=== PATIENT | male | born 1990 | race Caucasian/White ===

== ENCOUNTER 2016-12-12 18:56 | Emergency (ER) | payer SELFPAY ==
[2016-12-12 19:11] VITALS: BP 120/81; BMI 24.2
--- NOTE | 2016-12-12 19:34 | DR.GENAD ---
HPI - PCP Primary Care Physician: nfd - HPI Comment HPI Comment: HISTORY BELOW. - Complaint/Symptoms Chief Complaint Doctors Comments: ABDOMINAL PAIN, NAUSEA TODAY. FEW DAYS INCREASING INTREMITTENT PAIN. NO FEVER. HAVE LOOSE STOOL TODAY TIMES 2. HISTORY CROHNS DISEASE. TREATED WHEN CONDITION FLARE UP. GUM RT LOWER WISDOM TOOTH AREA AND PAINFULL. Chief Complaint:: pt states" i got real nauseaed and then the cramps started they are severe I have Crohns Dx" - Nurses notes reviewed Nurses Notes Review: Yes - Source History Provided: Patient - Mode of Arrival Mode of Arrival: Ambulatory - Timing Onset of Chief Complaint: 12/12/16 Came on: Suddenly - Duration Duration: Constant Duration: Days - Severity Severity: Moderate PMH - PMH Past Medical History: Yes Past Medical History Comment: crohns dx Past Surgical History: Yes Surgical History: Appendectomy, Bowel Resection, Cholecystectomy - Family History History of Family Medical Conditions: Yes Family Medical History: [place], Coronary Artery Disease, Heart Failure - Social History Does any household member use tobacco: Yes Alcohol Use: None Do you use any recreational Drugs:: No Lives With: Family Lives Where: Home - infectious screening In the last 2 months have you had wt loss of >10#?: NO Have you had fever, night sweats or hemotysis?: No Have you traveled outside the country in the last 6 months?: No Isolation: Standard ROS - Review of Systems Constitutional: Weakness, Fatigue, Loss of Appetite. negative: Chills, Fever Eyes: No Symptoms Reported. negative: Eye Pain, Discharge ENTM: Mouth Pain, Mouth Swelling (GUM SWELLING) Respiratoy: No Symptoms Reported. negative: Productive Cough, Non-Productive Cough, Short of Breath, Wheezing, Hemoptysis Cardiovascular: No Symptoms Reported Gastrointestinal/Abdominal: Abdominal Pain, Nausea Genitourinary: No Symptoms Reported. negative: Dysuria, Frequency, Hematuria Neurological: Weakness Musculoskeletal: Muscle Pain Integumentary: No Symptoms Reported Hematologic/Lymphatic: No Symptoms Reported Endocrine: No Symptoms Reported All Other Systems: Reviewed and Negative PE - Vital Signs Vitals: Temperature 98.6 F Pulse Rate 87 Respiratory Rate 18 Blood Pressure [Right Arm] 123/65 Blood Pressure [Left Arm] 118/66 Blood Pressure 120/81 O2 Sat by Pulse Oximetry 97 - General General Appearance: Alert - Head Head Exam: Normal Inspection - Eyes Eye exam: Normal Appearance - ENT ENT Exam: Normal External Ear Exam External Ear Exam: Normal External Inspection TM/Canal Exam: Bilateral Normal Nose Exam: Normal Nose Exam Mouth Exam: Other (GUM RED AND SWOLLEN RT LOWER WISDOM TOOTH AREA.) Throat Exam: Normal Inspection - Neck Neck Exam: Normal Inspection - Chest Chest Inspection: Normal Inspection - Respiratory Respiratory Exam: Normal Lung Sounds Bilat Respiratory Exam: Bilateral Clear to Auscultation - Cardiovascular Cardiovascular Exam: Regular Rate, Normal Rhythm, Normal Heart Sounds - Abdominal Exam Abdominal Exam: Normal Bowel Sounds, Soft, Distention Abdominal Tenderness: Diffuse, Moderate - Extremities Extremities Exam: Normal Inspection - Back Back Exam: Normal Inspection - Neurologic Neurological Exam: Alert, Oriented X3 - Psychiatric Psychiatric Exam: Normal Affect, Normal Mood - Skin Skin Exam: Normal Color MDM - Additional Information Additional Information Obtained From: Family - Differential Diagnosis Differential Diagnosis: ABDOMINAL PAIN, BOWEL OBST, CROHNS DISEASE, GINGIVITIS Course - Treatment Treatment: SEE ORDERS. - Education/Counseling Education/Counseling: Patient, Family, Education Educated On: Diagnosis, Needs for Follow Up ROR - Labs Reviewed Laboratory Results Reviewed?: Yes Result Diagrams: 12/12/16 19:48 12/12/16 19:48 Laboratory: WBC 7.9 X10^3/uL (3.6-10.0) 12/12/16 19:48 RBC 5.22 X10^6/uL (4.7-6.0) 12/12/16 19:48 Hgb 15.3 g/dL (13.5-18.0) 12/12/16 19:48 Hct 44.1 % (42.0-54.0) 12/12/16 19:48 MCV 84.3 fL (80.0-100.0) 12/12/16 19:48 MCH 29.3 pg (27.0-34.0) 12/12/16 19:48 MCHC 34.7 g/dL (33.0-35.0) 12/12/16 19:48 RDW 13.8 % (11.6-16.5) 12/12/16 19:48 Plt Count 302 X10^3/uL (150.0-450.0) 12/12/16 19:48 MPV 9.9 fL (7.4-11.0) 12/12/16 19:48 Neut % 68.8 % (42.0-75.0) 12/12/16 19:48 Lymph % 17.3 % (21.0-51.0) L 12/12/16 19:48 [place] % 11.8 % (0.0-13.0) 12/12/16 19:48 Eos % 1.5 % (0.9-2.9) 12/12/16 19:48 Baso % 0.6 % (0.2-1.0) 12/12/16 19:48 Neut # 5.4 x10^3/uL (2.2-4.8) H 12/12/16 19:48 Lymph # 1.4 X10^3/uL (1.3-2.9) 12/12/16 19:48 [place] # 0.9 x10^3/uL (0.3-0.8) H 12/12/16 19:48 Eos # 0.1 x10^3/uL (0.0-0.2) 12/12/16 19:48 Baso # 0.1 X10^3/uL (0.0-0.1) 12/12/16 19:48 Absolute Nucleated RBC 0.0 /100WBC 12/12/16 19:48 Sodium 136 mmol/L (136-145) 12/12/16 19:48 Corrected Sodium TNP 12/12/16 19:48 Potassium 3.9 mmol/L (3.5-5.1) 12/12/16 19:48 Chloride 99 mmol/L (98-107) 12/12/16 19:48 Carbon Dioxide 28.8 mmol/L (21-32) 12/12/16 19:48 BUN 11 mg/dL (7-18) 12/12/16 19:48 Creatinine 1.17 mg/dL (0.70-1.30) 12/12/16 19:48 Est GFR (MDRD) Af Amer > 60 (>60) 12/12/16 19:48 Est GFR (MDRD) Non-Af > 60 (>60) 12/12/16 19:48 Glucose 99 mg/dL (65-99) 12/12/16 19:48 Calcium 9.8 mg/dL (8.5-10.1) 12/12/16 19:48 Corrected Calcium TNP 12/12/16 19:48 Total Bilirubin 0.50 mg/dL (0.2-1.0) 12/12/16 19:48 AST 16 Units/L (15-37) 12/12/16 19:48 ALT 23 Units/L (12-78) 12/12/16 19:48 Alkaline Phosphatase 96 Units/L (46-116) 12/12/16 19:48 Total Protein 8.5 g/dL (6.4-8.2) H 12/12/16 19:48 Albumin 4.2 g/dL (3.4-5.0) 12/12/16 19:48 Globulin 4.3 g/dL (2.5-4.5) 12/12/16 19:48 Albumin/Globulin Ratio 1.0 Ratio (1.1-2.1) L 12/12/16 19:48 Amylase 88 Units/L (25-115) 12/12/16 19:48 Lipase 97 Units/L (73-393) 12/12/16 19:48 Specimen Type Clean catch urine 12/12/16 19:51 Urine Color Yellow (YELLOW) 12/12/16 19:51 Urine Appearance Clear (CLEAR) 12/12/16 19:51 Urine pH 6.0 (5.0 - 8.0) 12/12/16 19:51 Ur Specific [place] 1.020 (1.000-1.030) 12/12/16 19:51 Urine Protein 1+ (NEGATIVE) 12/12/16 19:51 Urine Glucose (UA) Negative (NEGATIVE) 12/12/16 19:51 Urine Ketones Negative (NEGATIVE) 12/12/16 19:51 Urine Occult Blood Negative (NEGATIVE) 12/12/16 19:51 Urine Nitrite Negative (NEGATIVE) 12/12/16 19:51 Urine Bilirubin Negative (NEGATIVE) 12/12/16 19:51 Urine Urobilinogen 1+ (NORMAL) 12/12/16 19:51 Ur Leukocyte Esterase 1+ (NEGATIVE) 12/12/16 19:51 Urine RBC None seen /HPF (NEGATIVE) 12/12/16 19:51 Urine WBC 3-5 /HPF (NEGATIVE) 12/12/16 19:51 Ur Squamous Epith Cells Rare /HPF (NEGATIVE) 12/12/16 19:51 Urine Bacteria Trace /HPF (NEGATIVE) 12/12/16 19:51 Urine Mucus Moderate /HPF (NEGATIVE) 12/12/16 19:51 Ur Culture Indicated? No/not indicated 12/12/16 19:51 - XRAY XRAY Interpreted by: Radiologist XRAY Findings: REPORT DISCUSS WITH PATIENT. - Diagnosis Discharge Problem: Crohn disease Qualifiers: Gastrointestinal tract location: unspecified location Digestive disease complication type: unspecified complication Qualified Code(s): K50.919 - Crohn' s disease, unspecified, with unspecified complications Abdominal pain Qualifiers: Abdominal location: generalized Qualified Code(s): R10.84 - Generalized abdominal pain - Discharge Plan Disposition: HOME, SELF-CARE Condition: Stable Prescriptions: Acetaminophen with Codeine [Tylenol/Codeine #3 300-30 mg] 1 tab PO Q4-6H PRN # 15 tab PRN Reason: Pain Ciprofloxacin HCl [CIPRO 500 MG TAB *] 500 mg PO Q12H #20 tab Metronidazole [Flagyl Tab 500 mg] 500 mg PO TID #21 tab - Follow ups/Referrals Follow ups/Referrals: NFD,None [Primary Care Provider] - 3 days - Instructions Instructions: Abdominal Pain, Adult, [id number], Crohn Disease Additional Instructions: RETURN TO ED IF WORSE.
[2016-12-12] MEDS ORDERED: NS 1000 ML 1,000 ML IV ONE (19:49)
[2016-12-12] MEDS ORDERED: ZOFRAN INJ 4 MG VIAL IVP ONE (19:50)
[2016-12-12] MEDS ORDERED: NS 1000 ML 1,000 ML ONE (19:51)
[2016-12-12] MEDS ORDERED: ZOFRAN INJ 4 MG VIAL ONE (19:51)
[2016-12-12 19:58] LABS: BASOPHILS # (AUTO) 0.1 X10^3/uL (0.0-0.1); BASOPHILS % (AUTO) 0.6 % (0.2-1.0); EOSINOPHILS # (AUTO) 0.1 x10^3/uL (0.0-0.2); EOSINOPHILS % (AUTO) 1.5 % (0.9-2.9); HEMATOCRIT 44.1 % (42.0-54.0); HEMOGLOBIN 15.3 g/dL (13.5-18.0); LYMPHOCYTES # (AUTO) 1.4 X10^3/uL (1.3-2.9); LYMPHOCYTES % (AUTO) 17.3 % (21.0-51.0); MEAN CORPUSCULAR HEMOGLOBIN 29.3 pg (27.0-34.0); MEAN CORPUSCULAR HGB CONC 34.7 g/dL (33.0-35.0); MEAN CORPUSCULAR VOLUME 84.3 fL (80.0-100.0); MEAN PLATELET VOLUME 9.9 fL (7.4-11.0); MONOCYTES # (AUTO) 0.9 x10^3/uL (0.3-0.8); MONOCYTES % (AUTO) 11.8 % (0.0-13.0); NEUTROPHILS # (AUTO) 5.4 x10^3/uL (2.2-4.8); NEUTROPHILS % (AUTO) 68.8 % (42.0-75.0); PLATELET COUNT 302 X10^3/uL (150.0-450.0); RED BLOOD COUNT 5.22 X10^6/uL (4.7-6.0); RED CELL DISTRIBUTION WIDTH 13.8 % (11.6-16.5); WHITE BLOOD COUNT 7.9 X10^3/uL (3.6-10.0)
[2016-12-12 20:02] LABS: BILIRUBIN,URINE NEGATIVE (NEGATIVE); BLOOD/HEMOGLOBIN,URINE NEGATIVE (NEGATIVE); GLUCOSE, URINE NEGATIVE (NEGATIVE); KETONES,URINE NEGATIVE (NEGATIVE); LEUKOCYTE ESTERASE ,URINE 1+ (NEGATIVE); NITRITES,URINE NEGATIVE (NEGATIVE); PROTEIN,URINE 1+ (NEGATIVE); UROBILINOGEN,URINE 1+ (NORMAL)
[2016-12-12 20:07] LABS: ALANINE AMINOTRANSFERASE 23 Units/L (12-78); ALBUMIN 4.2 g/dL (3.4-5.0); ALKALINE PHOSPHATASE 96 Units/L (46-116); AMYLASE 88 Units/L (25-115); ASPARTATE AMINO TRANSFERASE 16 Units/L (15-37); BLOOD UREA NITROGEN 11 mg/dL (7-18); CALCIUM 9.8 mg/dL (8.5-10.1); CARBON DIOXIDE 28.8 mmol/L (21-32); CHLORIDE 99 mmol/L (98-107); CREATININE 1.17 mg/dL (0.70-1.30); LIPASE 97 Units/L (73-393); SODIUM 136 mmol/L (136-145); TOTAL PROTEIN 8.5 g/dL (6.4-8.2); eGFR BLACK RACES > 60 (>60); eGFR NON BLACK RACES > 60 (>60)
[2016-12-12 20:08] LABS: APPEARANCE,URINE CLEAR (CLEAR); BACTERIA,URINE TRACE /HPF (NEGATIVE); COLOR,URINE YELLOW (YELLOW); MUCUS,URINE MODERATE /HPF (NEGATIVE); RBC,URINE NONE SEEN /HPF (NEGATIVE); SQUAMOUS EPITHELIAL CELL,UR RARE /HPF (NEGATIVE)
--- NOTE | 2016-12-12 20:26 | CT ---
CT abdomen and pelvis without contrast Indication: Abdominal pain Technique: Helical CT images of the abdomen and pelvis were obtained without IV contrast. Reformatted images in the coronal and sagittal planes were also generated for review. Comparison: December 26, 2013 Findings: Visualized lung bases are clear. No aggressive osseous lesions are identified. The gallbladder is surgically absent. Within the limits of a noncontrast exam, the unenhanced liver, spleen, pancreas, adrenals and right kidney are grossly unremarkable. The left kidney is also normal apart from a nonobstructing 2 mm stone within its lower pole. No additional radiopaque urinary tract calculi are identified at any level and there is no left or right hydroureteronephrosis. Postsurgical changes are again noted within the mid and distal small bowel. The unenhanced GI tract i s otherwise grossly unremarkable without evidence of obstruction. The IVC, abdominal aorta, collapsed urinary bladder and prostate are normal. Multiple prominent mesenteric lymph nodes throughout the ab domen are again noted and unchanged. No free air, free fluid or worsening lymphadenopathy is identifi ed. Impression: 1. No acute abnormality identified to explain patient's abdominal pain. 2. Nonobstructing left nephrolithiasis. 3. Stable nonspecific mesenteric lymphadenopathy. Reported By:
[2016-12-12] MEDS ORDERED: SOLU-Medrol 125 MG VIAL IVP ONE (21:42)
[2016-12-12] MEDS ORDERED: CIPRO TAB 500 MG PO ONE (21:43)
[2016-12-12] MEDS ORDERED: FLAGYL IV PREMIX 500 MG BAG 500 MG/100 ML BAG IV ONE (21:43)
[2016-12-12] MEDS ORDERED: TYLENOL #3 TAB (W/CODEINE) PO ONE (21:55)
== END 2016-12-12 22:00 | disposition home or self-care (01) ==
LOC: ER 19:20
DX: K50.919 Crohn's disease, unspecified, with unspecified complications (principal); R10.84 Generalized abdominal pain; I88.0 Nonspecific mesenteric lymphadenitis; N20.0 Calculus of kidney
CPT/HCPCS: 36415; 74176; 80053; 81001; 82150; 83690; 85025; 96365; 96374; 99283; A4222; J2405

== ENCOUNTER 2017-01-08 20:43 | Emergency (ER) | payer SELFPAY ==
[2017-01-08 20:48] VITALS: BMI 24.3
[2017-01-08] MEDS ORDERED: ZOFRAN INJ 4 MG VIAL ONE (22:07)
[2017-01-08] MEDS ORDERED: PROTONIX INJ 40 MG VIAL ONE (22:07)
[2017-01-08] MEDS ORDERED: DEMEROL INJ ONE (22:08)
[2017-01-08] MEDS ORDERED: NS 1000 ML 1,000 ML IV ONE (22:08)
[2017-01-08] MEDS ORDERED: NS 1000 ML 1,000 ML ONE (22:08)
[2017-01-08] MEDS ORDERED: ZOFRAN INJ 4 MG VIAL IVP ONE (22:11)
[2017-01-08] MEDS ORDERED: DEMEROL INJ IVP ONE (22:11)
--- NOTE | 2017-01-08 22:11 | DR.GENAD ---
HPI - Complaint/Symptoms Chief Complaint Doctors Comments: Patient with a history of Crohns disease admits to vomitng for the past 13 hours. He admits to abdominal cramping. Denies diarrhea. Chief Complaint:: PT STATES THAT HIS "CHRONS IS ACTING UP" C/O N/V AND ABD PAIN. DOES NOT TAKE MEDS FOR CHRONS AND DOES NOT SEE DOCTOR FOR IT - Source History Provided: Patient - Mode of Arrival Mode of Arrival: Ambulatory - Timing Onset of Chief Complaint: 01/07/17 PMH - PMH Past Medical History: Yes Past Medical History: Hyperthyroidism Past Surgical History: Yes Surgical History: Abdominal Surgery, Bowel Resection - Family History History of Family Medical Conditions: Yes Family Medical History: Cancer, [place], Hypertension - Social History Do you use any recreational Drugs:: No - infectious screening Have you traveled outside the country in the last 6 months?: No ROS - Review of Systems Eyes: No Symptoms Reported ENTM: No Symptoms Reported Respiratoy: No Symptoms Reported Cardiovascular: No Symptoms Reported Gastrointestinal/Abdominal: Abdominal Pain Genitourinary: No Symptoms Reported Neurological: No Symptoms Reported Musculoskeletal: No Symptoms Reported Integumentary: No Symptoms Reported Hematologic/Lymphatic: No Symptoms Reported Endocrine: No Symptoms Reported Psychiatric: No Symptoms Reported, See HPI All Other Systems: Reviewed and Negative PE - Vital Signs Vitals: Temperature 98.7 F Pulse Rate 90 Respiratory Rate 18 Blood Pressure [Right Arm] 123/65 Blood Pressure [Left Arm] 118/66 Blood Pressure 129/88 O2 Sat by Pulse Oximetry 98 - General General Appearance: Alert, Anxious, In Distress - Head Head Exam: Normal Inspection, Atraumatic - Eyes Eye exam: Normal Appearance, PERRL, EOMI - ENT ENT Exam: Normal Exam, Normal Oropharynx External Ear Exam: Normal External Inspection TM/Canal Exam: Bilateral Normal Nose Exam: Normal Nose Exam Mouth Exam: Normal Inspection Throat Exam: Normal Inspection - Neck Neck Exam: Normal Inspection - Chest Chest Inspection: Normal Inspection - Respiratory Respiratory Exam: Normal Lung Sounds Bilat Respiratory Exam: Bilateral Clear to Auscultation - Cardiovascular Cardiovascular Exam: Regular Rate, Normal Rhythm - Abdominal Exam Abdominal Exam: Normal Inspection, Normal Bowel Sounds Abdominal Tenderness: Diffuse - Extremities Extremities Exam: Normal Inspection, Full ROM - Back Back Exam: Normal Inspection, Full ROM - Neurologic Neurological Exam: Alert, Oriented X3, CN II-XII Intact - Psychiatric Psychiatric Exam: Normal Affect - Skin Skin Exam: Warm, Dry, Intact Course - Reevaluation 1st: Improved - Education/Counseling Educated On: Treatment, Prognosis, Needs for Follow Up ROR - Labs Reviewed Result Diagrams: 01/08/17 22:15 01/08/17 22:15 Laboratory: WBC 10.4 X10^3/uL (3.6-10.0) H 01/08/17 22:15 RBC 5.21 X10^6/uL (4.7-6.0) 01/08/17 22:15 Hgb 15.0 g/dL (13.5-18.0) 01/08/17 22:15 Hct 43.9 % (42.0-54.0) 01/08/17 22:15 MCV 84.3 fL (80.0-100.0) 01/08/17 22:15 MCH 28.7 pg (27.0-34.0) 01/08/17 22:15 MCHC 34.1 g/dL (33.0-35.0) 01/08/17 22:15 RDW 14.2 % (11.6-16.5) 01/08/17 22:15 Plt Count 370 X10^3/uL (150.0-450.0) 01/08/17 22:15 MPV 9.1 fL (7.4-11.0) 01/08/17 22:15 Neut % 74.3 % (42.0-75.0) 01/08/17 22:15 Lymph % 12.9 % (21.0-51.0) L 01/08/17 22:15 [place] % 11.9 % (0.0-13.0) 01/08/17 22:15 Eos % 0.5 % (0.9-2.9) L 01/08/17 22:15 Baso % 0.4 % (0.2-1.0) 01/08/17 22:15 Neut # 7.7 x10^3/uL (2.2-4.8) H 01/08/17 22:15 Lymph # 1.3 X10^3/uL (1.3-2.9) 01/08/17 22:15 [place] # 1.2 x10^3/uL (0.3-0.8) H 01/08/17 22:15 Eos # 0.1 x10^3/uL (0.0-0.2) 01/08/17 22:15 Baso # 0.0 X10^3/uL (0.0-0.1) 01/08/17 22:15 Absolute Nucleated RBC 0.0 /100WBC 01/08/17 22:15 Sodium 138 mmol/L (136-145) 01/08/17 22:15 Corrected Sodium TNP 01/08/17 22:15 Potassium 3.8 mmol/L (3.5-5.1) 01/08/17 22:15 Chloride 99 mmol/L (98-107) 01/08/17 22:15 Carbon Dioxide 28.7 mmol/L (21-32) 01/08/17 22:15 BUN 15 mg/dL (7-18) 01/08/17 22:15 Creatinine 1.22 mg/dL (0.70-1.30) 01/08/17 22:15 Est GFR (MDRD) Af Amer > 60 (>60) 01/08/17 22:15 Est GFR (MDRD) Non-Af > 60 (>60) 01/08/17 22:15 Glucose 105 mg/dL (65-99) H 01/08/17 22:15 Calcium 9.5 mg/dL (8.5-10.1) 01/08/17 22:15 Corrected Calcium TNP 01/08/17 22:15 Total Bilirubin 0.50 mg/dL (0.2-1.0) 01/08/17 22:15 AST 16 Units/L (15-37) 01/08/17 22:15 ALT 20 Units/L (12-78) 01/08/17 22:15 Alkaline Phosphatase 91 Units/L (46-116) 01/08/17 22:15 C-Reactive Protein 23.10 mg/L (0-3.0) H 01/08/17 22:15 Total Protein 8.5 g/dL (6.4-8.2) H 01/08/17 22:15 Albumin 3.7 g/dL (3.4-5.0) 01/08/17 22:15 Globulin 4.8 g/dL (2.5-4.5) H 01/08/17 22:15 Albumin/Globulin Ratio 0.8 Ratio (1.1-2.1) L 01/08/17 22:15 - Diagnosis Discharge Problem: Crohns disease Qualifiers: Gastrointestinal tract location: small and large intestine Digestive disease complication type: without complication Qualified Code(s): K50.80 - Crohn's disease of both small and large intestine without complications - Discharge Plan Condition: Stable - Follow ups/Referrals Follow ups/Referrals: DARLYN MEDEIROS [Primary Care Provider] - 3 days - Instructions
[2017-01-08] MEDS ORDERED: PROTONIX INJ 40 MG VIAL IVP ONE (22:12)
[2017-01-08 22:22] LABS: BASOPHILS % (AUTO) 0.4 % (0.2-1.0); EOSINOPHILS # (AUTO) 0.1 x10^3/uL (0.0-0.2); EOSINOPHILS % (AUTO) 0.5 % (0.9-2.9); HEMATOCRIT 43.9 % (42.0-54.0); LYMPHOCYTES # (AUTO) 1.3 X10^3/uL (1.3-2.9); LYMPHOCYTES % (AUTO) 12.9 % (21.0-51.0); MEAN CORPUSCULAR HEMOGLOBIN 28.7 pg (27.0-34.0); MEAN CORPUSCULAR HGB CONC 34.1 g/dL (33.0-35.0); MEAN CORPUSCULAR VOLUME 84.3 fL (80.0-100.0); MEAN PLATELET VOLUME 9.1 fL (7.4-11.0); MONOCYTES # (AUTO) 1.2 x10^3/uL (0.3-0.8); MONOCYTES % (AUTO) 11.9 % (0.0-13.0); NEUTROPHILS # (AUTO) 7.7 x10^3/uL (2.2-4.8); NEUTROPHILS % (AUTO) 74.3 % (42.0-75.0); PLATELET COUNT 370 X10^3/uL (150.0-450.0); RED BLOOD COUNT 5.21 X10^6/uL (4.7-6.0); RED CELL DISTRIBUTION WIDTH 14.2 % (11.6-16.5); WHITE BLOOD COUNT 10.4 X10^3/uL (3.6-10.0)
[2017-01-08 22:35] LABS: ALANINE AMINOTRANSFERASE 20 Units/L (12-78); ALBUMIN 3.7 g/dL (3.4-5.0); ALKALINE PHOSPHATASE 91 Units/L (46-116); ASPARTATE AMINO TRANSFERASE 16 Units/L (15-37); BLOOD UREA NITROGEN 15 mg/dL (7-18); CALCIUM 9.5 mg/dL (8.5-10.1); CARBON DIOXIDE 28.7 mmol/L (21-32); CHLORIDE 99 mmol/L (98-107); CREATININE 1.22 mg/dL (0.70-1.30); SODIUM 138 mmol/L (136-145); TOTAL PROTEIN 8.5 g/dL (6.4-8.2); eGFR BLACK RACES > 60 (>60); eGFR NON BLACK RACES > 60 (>60)
[2017-01-08] MEDS ORDERED: SOLU-Medrol 125 MG VIAL ONE (22:53)
[2017-01-08] MEDS ORDERED: SOLU-Medrol 125 MG VIAL IVP ONE (22:53)
[2017-01-09] MEDS ORDERED: DEMEROL INJ IVP ONE (00:45)
[2017-01-09] MEDS ORDERED: DEMEROL INJ ONE (00:47)
[2017-01-09] MEDS ORDERED: NS 500 ML IV 500 ML IV ONE ×2 (00:49→00:53)
[2017-01-09 01:23] VITALS: BP 118/78
== END 2017-01-09 01:24 | disposition home or self-care (01) ==
LOC: ER 20:56
DX: K50.80 Crohn's disease of both small and large intestine without complications (principal)
CPT/HCPCS: 36415; 80053; 85025; 86140; 96365; 96367; 96374; 96375; A4222; C9113; J2175; J2405; J2930

== ENCOUNTER 2024-09-06 20:48 | Inpatient (IN) ==
--- NOTE | 2024-09-06 21:25 | DR.ABDMALE ---
HPI Time seen Time Seen by Provider: 09/06/24 21:25 PCP Primary Care Physician: none Complaint Chief Complaint:: vomiting, body pains, stomach cramps, Bad Crohn's flare up Self Treatment fo Chief Complaint: none COVID-19 Coronavirus risk:travel/contact w/high risk person: No Has patient experienced Coronavirus symptoms: No Mode of arrival Mode of Arrival: Ambulatory Timing Onset of Chief Complaint: 09/05/24 PMH PMH Past Medical History: No Past Medical History: Hyperthyroidism Past Surgical History: Yes Surgical History: Bowel Resection Past Surgical History Comment: 2 previous bowel resections umbilical fistula Family History History of Family Medical Conditions: No Family Medical History: Cancer, [place] and Hypertension Social History Does patient currently use any type of tobacco product: No Have you used tobacco products in the last 12 months: No Type of Tobacco Use: None Does any household member use tobacco: No Alcohol Use: None Do you use any recreational Drugs:: No Lives With: Mom Lives Where: Home Travel Risk Coronavirus risk:travel/contact w/high risk person: No Has patient experienced Coronavirus symptoms: No Infectious screening Have you traveled outside the country in the last 6 months?: No Isolation: Standard PE Vital Signs Vital Signs: Temp Pulse Pulse Resp BP BP Pulse Ox 09/06/24 22:15 80 98 09/06/24 22:00 98.0 F 121/71 09/06/24 22:00 70 97 09/06/24 22:00 121/71 09/06/24 22:00 121/71 09/06/24 22:00 70 97 09/06/24 21:49 77 97 09/06/24 21:04 98.1 F 87 18 138/73 97 09/06/24 21:00 98.0 F 77 18 127/64 100 09/06/24 21:00 98.1 F 87 18 138/73 97 O2 Del Method 09/06/24 22:15 09/06/24 22:00 09/06/24 22:00 09/06/24 22:00 09/06/24 22:00 09/06/24 22:00 09/06/24 21:49 09/06/24 21:04 Room Air 09/06/24 21:00 Room Air 09/06/24 21:00 Room Air ROR Labs Reviewed 09/06/24 22:00 09/06/24 22:00 Laboratory: 09/06/24 22:06 Navel Wound Gram Stain - Final WBC 8.7 X10^3/uL (3.6-10.0) 09/06/24 22:00 RBC 4.75 X10^6/uL (4.7-6.0) 09/06/24 22:00 Hgb 13.3 g/dL (13.5-18.0) L 09/06/24 22:00 Hct 39.1 % (42.0-54.0) L 09/06/24 22:00 MCV 82.4 fL (80.0-100.0) 09/06/24 22:00 MCH 27.9 pg (27.0-34.0) 09/06/24 22:00 MCHC 33.9 g/dL (33.0-35.0) 09/06/24 22:00 RDW 16.0 % (11.6-16.5) 09/06/24 22:00 Plt Count 298 X10^3/uL (150.0-450.0) 09/06/24 22:00 MPV 8.8 fL (7.4-11.0) 09/06/24 22:00 Neut % (Auto) 76.5 % (42.0-75.0) H 09/06/24 22:00 Lymph % (Auto) 9.7 % (21.0-51.0) L 09/06/24 22:00 [place] % (Auto) 11.2 % (0.0-13.0) 09/06/24 22:00 Eos % (Auto) 2.2 % (0.9-2.9) 09/06/24 22:00 Baso % (Auto) 0.4 % (0.2-1.0) 09/06/24 22:00 Neut # (Auto) 6.7 x10^3/uL (2.2-4.8) H 09/06/24 22:00 Lymph # (Auto) 0.8 X10^3/uL (1.3-2.9) L 09/06/24 22:00 [place] # (Auto) 1.0 x10^3/uL (0.3-0.8) H 09/06/24 22:00 Eos # (Auto) 0.2 x10^3/uL (0.0-0.2) 09/06/24 22:00 Baso # (Auto) 0.0 X10^3/uL (0.0-0.1) 09/06/24 22:00 Absolute Nucleated RBC 0.1 /100WBC 09/06/24 22:00 Sodium 144 mmol/L (136-145) 09/06/24 22:00 Corrected Sodium 145 mmol/L (136-145) 09/06/24 22:00 Potassium 3.4 mmol/L (3.5-5.1) L 09/06/24 22:00 Chloride 103 mmol/L (98-107) 09/06/24 22:00 Carbon Dioxide 29.1 mmol/L (21-32) 09/06/24 22:00 BUN 12 mg/dL (7-18) 09/06/24 22:00 Creatinine 0.97 mg/dL (0.70-1.30) 09/06/24 22:00 Est GFR (MDRD) Af Amer > 60 (>60) 09/06/24 22:00 Est GFR (MDRD) Non-Af > 60 (>60) 09/06/24 22:00 Glucose 122 mg/dL (65-99) H 09/06/24 22:00 Calcium 9.0 mg/dL (8.5-10.1) 09/06/24 22:00 Corrected Calcium 9.6 mg/dL (8.5-10.1) 09/06/24 22:00 Total Bilirubin 0.30 mg/dL (0.2-1.0) 09/06/24 22:00 AST 15 Units/L (15-37) 09/06/24 22:00 ALT 33 Units/L (12-78) 09/06/24 22:00 Alkaline Phosphatase 109 Units/L (46-116) 09/06/24 22:00 Total Protein 7.8 g/dL (6.4-8.2) 09/06/24 22:00 Albumin 3.3 g/dL (3.4-5.0) L 09/06/24 22:00 Globulin 4.5 g/dL (2.5-4.5) 09/06/24 22:00 Albumin/Globulin Ratio 0.7 Ratio (1.1-2.1) L 09/06/24 22:00 Amylase 107 Units/L (25-115) 09/06/24 22:00 Lipase 49 Units/L (16-77) 09/06/24 22:00 Specimen Type Clean catch urine 09/06/24 23:00 Urine Color Yellow (YELLOW) 09/06/24 23:00 Urine Appearance Clear (CLEAR) 09/06/24 23:00 Urine pH 7.0 (5.0 - 8.0) 09/06/24 23:00 Ur Specific [place] 1.015 (1.000-1.030) 09/06/24 23:00 Urine Protein Negative (NEGATIVE) 09/06/24 23:00 Urine Glucose (UA) Negative (NEGATIVE) 09/06/24 23:00 Urine Ketones Negative (NEGATIVE) 09/06/24 23:00 Urine Blood Negative (NEGATIVE) 09/06/24 23:00 Urine Nitrite Negative (NEGATIVE) 09/06/24 23:00 Urine Bilirubin Negative (NEGATIVE) 09/06/24 23:00 Urine Urobilinogen 1+ (NORMAL) 09/06/24 23:00 Ur Leukocyte Esterase Negative (NEGATIVE) 09/06/24 23:00 Urine RBC 0-2 /HPF (0-3) 09/06/24 23:00 Urine WBC None seen /HPF (0-5) 09/06/24 23:00 Ur Squamous Epith Cells Few /HPF (NEGATIVE) 09/06/24 23:00 Amorphous Sediment 1+ /HPF (NEGATIVE) 09/06/24 23:00 Urine Bacteria Trace /HPF (NEGATIVE) 09/06/24 23:00 Ur Culture Indicated? No/not indicated 09/06/24 23:00 Opioid Opioid Risk Tool Age (Steven box if 16-45): No History of Preadolescent Sexual Abuse: No Total: 0 Total Score Risk Category: Low Risk Copyright: Ramon CUTLER predicting aberrant behaviors Discharge Plan Discharge Plan Patient Disposition: HOME, SELF-CARE Condition: Stable Prescriptions: No Action gabapentin 100 mg capsule 100 mg PO BID fluoxetine [Prozac] 20 mg capsule 20 mg PO QAM tamsulosin [Flomax] 0.4 mg capsule 0.4 mg PO QDAY Qty: 20 0RF hydrocodone-acetaminophen 5-325 mg tablet 1 tab PO Q8H MDD 3 PRNQty: 20 0RF ondansetron HCl 4 mg tablet 4 mg PO Q8H PRNQty: 10 0RF Health Concerns: Post Hospitalization: new medications and changes needed to prevent readmission or further decline. Pt educated and given instructions on all concerns. Plan of Treatment: Continue with present treatment and follow up plan. Pt is to keep follow up appointment as instructed and take medications as ordered. Orders to Discharge Patient Discharge Orders: Transfer (Routine); Ordered 09/07/24 Ordered By: JOAN SALAS Follow ups/Referrals Follow ups/Referrals: NFD,None [Primary Care Provider] - 3 days Instructions Stand Alone Forms: Find Help Web Site, Post Hospital Follow Up Care Print Language: BURKIN[place]
[2024-09-06] MEDS: NS 1,000 ML IV 1,000 ML IV ONE (21:55)
[2024-09-06] MEDS ORDERED: NS 1,000 ML IV 1,000 ML ONE (21:55)
[2024-09-06] MEDS ORDERED: ZOFRAN INJ 4 MG VIAL ONE (22:07)
[2024-09-06] MEDS: ZOFRAN INJ 4 MG VIAL IVP ONE (22:08)
[2024-09-06 22:13] LABS: BASOPHILS % (AUTO) 0.4 % (0.2-1.0); EOSINOPHILS # (AUTO) 0.2 x10^3/uL (0.0-0.2); EOSINOPHILS % (AUTO) 2.2 % (0.9-2.9); HEMATOCRIT 39.1 % (42.0-54.0); HEMOGLOBIN 13.3 g/dL (13.5-18.0); LYMPHOCYTES # (AUTO) 0.8 X10^3/uL (1.3-2.9); LYMPHOCYTES % (AUTO) 9.7 % (21.0-51.0); MEAN CORPUSCULAR HEMOGLOBIN 27.9 pg (27.0-34.0); MEAN CORPUSCULAR HGB CONC 33.9 g/dL (33.0-35.0); MEAN CORPUSCULAR VOLUME 82.4 fL (80.0-100.0); MEAN PLATELET VOLUME 8.8 fL (7.4-11.0); MONOCYTES % (AUTO) 11.2 % (0.0-13.0); NEUTROPHILS # (AUTO) 6.7 x10^3/uL (2.2-4.8); NEUTROPHILS % (AUTO) 76.5 % (42.0-75.0); PLATELET COUNT 298 X10^3/uL (150.0-450.0); RED BLOOD COUNT 4.75 X10^6/uL (4.7-6.0); WHITE BLOOD COUNT 8.7 X10^3/uL (3.6-10.0)
[2024-09-06 22:21] LABS: ALANINE AMINOTRANSFERASE 33 Units/L (12-78); ALBUMIN 3.3 g/dL (3.4-5.0); ALKALINE PHOSPHATASE 109 Units/L (46-116); AMYLASE 107 Units/L (25-115); ASPARTATE AMINO TRANSFERASE 15 Units/L (15-37); BLOOD UREA NITROGEN 12 mg/dL (7-18); CARBON DIOXIDE 29.1 mmol/L (21-32); CHLORIDE 103 mmol/L (98-107); COR CA(FOR HYPOALB) 9.6 mg/dL (8.5-10.1); COR NA(FOR HYPERGLY) 145 mmol/L (136-145); CREATININE 0.97 mg/dL (0.70-1.30); GLUCOSE 122 mg/dL (65-99); LIPASE 49 Units/L (16-77); POTASSIUM 3.4 mmol/L (3.5-5.1); SODIUM 144 mmol/L (136-145); TOTAL PROTEIN 7.8 g/dL (6.4-8.2); eGFR NON BLACK RACES > 60 (>60)
--- NOTE | 2024-09-06 23:13 | CT ---
CT ABDOMEN AND PELVIS WITHOUT CONTRAST HISTORY: Severe abdominal pain with distention. There is concern for bowel obstruction COMPARISON: None TECHNIQUE: Axial images were obtained of the abdomen and pelvis without IV contrast. Sagittal and coronal reformatted images were provided. All images were reviewed in a variety of windows and levels. RADIATION REDUCTION TECHNIQUE: Automated exposure control, adjustment of the mA or kV according to patient size, or iterative reconstruction techniques were used. FINDINGS: Please note that lack of IV contrast does limit evaluation of the soft tissues and vascular detail. The visualized lower lung zones are clear. The heart size is within normal limits. There is no evidence of a pericardial effusion. The liver, spleen, pancreas, adrenal glands, and kidneys are grossly unremarkable. The patient is status post cholecystectomy. There is no evidence of stones or signs of obstructive uropathy. The stomach is distended and filled with food like materials. Markedly distended loops of small bowel are seen with multiple surgical suture areas that may be from partial resection. There is thickening of the small-bowel wall in certain areas which could represent an infectious or inflammatory process. These imaging features are concerning for a moderate to high-grade partial small bowel obstruction. Severe constipation is seen with heavy fecal burden from the cecum to the rectosigmoid region. Please note that the mesentery shows a swirling pattern located in the right hemiabdomen at the level of the lower lumbar spine which could be causing a mechanical obstruction of this process. A definitive transition point can not be identified on this examination but appears to be within the distal small bowel. There is no evidence of retroperitoneal or mesenteric lymphadenopathy. The visualized bones demonstrate degenerative changes. There are no concerning lytic or blastic lesions identified. IMPRESSION: 1. MARKEDLY DISTENDED LOOPS OF SMALL BOWEL ARE SEEN WITH MULTIPLE SURGICAL SUTURE AREAS THAT MAY BE FROM PARTIAL RESECTION. THERE IS THICKENING OF THE SMALL-BOWEL WALL IN CERTAIN AREAS WHICH COULD REPRESENT AN INFECTIOUS OR INFLAMMATORY PROCESS. THESE IMAGING FEATURES ARE CONCERNING FOR A MODERATE TO HIGH-GRADE PARTIAL SMALL BOWEL OBSTRUCTION. 2. SEVERE CONSTIPATION IS SEEN WITH HEAVY FECAL BURDEN FROM THE CECUM TO THE RECTOSIGMOID REGION. 3. PLEASE NOTE THAT THE MESENTERY SHOWS A SWIRLING PATTERN LOCATED IN THE RIGHT HEMIABDOMEN AT THE LEVEL OF THE LOWER LUMBAR SPINE WHICH COULD BE CAUSING A MECHANICAL OBSTRUCTION OF THIS PROCESS. A DEFINITIVE TRANSITION POINT CAN NOT BE IDENTIFIED ON THIS EXAMINATION BUT APPEARS TO BE WITHIN THE DISTAL SMALL BOWEL. THIS IS AN ELECTRONICALLY VERIFIED FINAL REPORT 09/06/2024 11:10 PM - Electronically signed by Mendel Knight MD
[2024-09-06 23:27] LABS: BILIRUBIN,URINE NEGATIVE (NEGATIVE); BLOOD/HEMOGLOBIN,URINE NEGATIVE (NEGATIVE); GLUCOSE, URINE NEGATIVE (NEGATIVE); KETONES,URINE NEGATIVE (NEGATIVE); LEUKOCYTE ESTERASE ,URINE NEGATIVE (NEGATIVE); NITRITES,URINE NEGATIVE (NEGATIVE); PROTEIN,URINE NEGATIVE (NEGATIVE); UROBILINOGEN,URINE 1+ (NORMAL)
[2024-09-06 23:30] LABS: APPEARANCE,URINE CLEAR (CLEAR); BACTERIA,URINE TRACE /HPF (NEGATIVE); COLOR,URINE YELLOW (YELLOW); RBC,URINE 0-2 /HPF (0-3); SQUAMOUS EPITHELIAL CELL,UR FEW /HPF (NEGATIVE)
[2024-09-07] MEDS: MORPHINE SULFATE INJ 4 MG IVP ONE (00:06)
[2024-09-07 03:24] VITALS: BMI 22.4
[2024-09-07] MEDS: CIPRO IV 400 MG PREMIX* 400 MG/200 ML IV.SOLN. IV SCH (03:33)
[2024-09-07 05:28] VITALS: RESP 20
[2024-09-07 05:58] LABS: BASOPHILS % (AUTO) 0.3 % (0.2-1.0); EOSINOPHILS # (AUTO) 0.2 x10^3/uL (0.0-0.2); EOSINOPHILS % (AUTO) 2.3 % (0.9-2.9); HEMATOCRIT 38.5 % (42.0-54.0); HEMOGLOBIN 13.1 g/dL (13.5-18.0); LYMPHOCYTES # (AUTO) 1.3 X10^3/uL (1.3-2.9); LYMPHOCYTES % (AUTO) 12.5 % (21.0-51.0); MEAN CORPUSCULAR HEMOGLOBIN 28.2 pg (27.0-34.0); MEAN CORPUSCULAR HGB CONC 34.1 g/dL (33.0-35.0); MEAN CORPUSCULAR VOLUME 82.8 fL (80.0-100.0); MEAN PLATELET VOLUME 9.3 fL (7.4-11.0); MONOCYTES # (AUTO) 1.4 x10^3/uL (0.3-0.8); MONOCYTES % (AUTO) 14.1 % (0.0-13.0); NEUTROPHILS # (AUTO) 7.2 x10^3/uL (2.2-4.8); NEUTROPHILS % (AUTO) 70.8 % (42.0-75.0); PLATELET COUNT 292 X10^3/uL (150.0-450.0); RED BLOOD COUNT 4.66 X10^6/uL (4.7-6.0); RED CELL DISTRIBUTION WIDTH 15.5 % (11.6-16.5); WHITE BLOOD COUNT 10.1 X10^3/uL (3.6-10.0)
[2024-09-07 06:05] LABS: ALANINE AMINOTRANSFERASE 27 Units/L (12-78); ALKALINE PHOSPHATASE 99 Units/L (46-116); ASPARTATE AMINO TRANSFERASE 17 Units/L (15-37); BLOOD UREA NITROGEN 10 mg/dL (7-18); CALCIUM 8.7 mg/dL (8.5-10.1); CARBON DIOXIDE 25.6 mmol/L (21-32); CHLORIDE 105 mmol/L (98-107); COR CA(FOR HYPOALB) 9.5 mg/dL (8.5-10.1); CREATININE 0.85 mg/dL (0.70-1.30); GLUCOSE 110 mg/dL (65-99); POTASSIUM 3.7 mmol/L (3.5-5.1); SODIUM 141 mmol/L (136-145); TOTAL PROTEIN 7.2 g/dL (6.4-8.2); eGFR NON BLACK RACES > 60 (>60)
[2024-09-07] MEDS ORDERED: CONSULT PHARMACY - POTASSIUM & MAGNESIUM XX SCH (07:00)
[2024-09-07] MEDS: MORPHINE SULFATE INJ 2 MG INJ IVP PRN (07:14)
[2024-09-07] MEDS: ZOFRAN INJ 4 MG VIAL IVP PRN (07:15)
[2024-09-07] MEDS: NS 500 ML IV 500 ML IV ONE (08:10)
[2024-09-07] MEDS: MAGNESIUM SULFATE 1 GRAM/100 mL PREMIX 1 G/100 ML BAG IV SCH (08:11)
[2024-09-07 08:51] VITALS: BP 114/75; PULSE 56; TEMP 97.5; O2SAT 96
[2024-09-07] MEDS ORDERED: K-RIDER 10 MEQ/100 ML WATER 10 MEQ/100 ML BAG IV SCH (09:00)
--- NOTE | 2024-09-07 10:33 | DR.H&P ---
H&P History & Physical for Day of: H&P Date: 09/07/24 Chief Complaint Chief Complaint: Abdominal pain, abdominal distention. 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 He has drainage from the periumbilical area and CT scan consistent with thickened small bowel loops and probable small bowel obstruction. Patient past history of Crohn's disease status post resection of bowel in the past, 2004. 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 Patient has not been on medications for his Crohn disease as he has no insurance. 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 Past Medical History Past Medical History: Hyperthyroidism Additional Medical History: History of Crohn's as above Past Surgical History Surgical History: Appendectomy, Bowel Resection and Cholecystectomy Family History Family Medical History: [place], Coronary Artery Disease and Heart Failure Social History Does patient currently use any type of tobacco product: No Have you used tobacco products in the last 12 months: No Type of Tobacco Use: None Does any household member use tobacco: No Alcohol Use: None Drug Use: Marijuana Medications Home Medications: Home Medications Medication Instructions Recorded Confirmed Type fluoxetine 20 mg capsule (Prozac) 20 mg PO QAM 3 10/25/22 History gabapentin 100 mg capsule 100 mg PO BID 10/25/2210/25 History Allergies Allergies Allergy/AdvReac Type Severity Reaction Status Date / Time hydromorphone (From Dilaudid) Allergy Verified 10/25/22 01:27 Penicillins Allergy Verified 10/25/22 01:27 Labs 09/07/24 05:11 09/07/24 05:11 Labs: 09/06/24 22:06 Navel Wound Gram Stain - Final 09/06/24 22:06 Navel Wound Culture - Preliminary Laboratory WBC 10.1 X10^3/uL (3.6-10.0) H 09/07/24 05:11 RBC 4.66 X10^6/uL (4.7-6.0) L 09/07/24 05:11 Hgb 13.1 g/dL (13.5-18.0) L 09/07/24 05:11 Hct 38.5 % (42.0-54.0) L 09/07/24 05:11 MCV 82.8 fL (80.0-100.0) 09/07/24 05:11 MCH 28.2 pg (27.0-34.0) 09/07/24 05:11 MCHC 34.1 g/dL (33.0-35.0) 09/07/24 05:11 RDW 15.5 % (11.6-16.5) 09/07/24 05:11 Plt Count 292 X10^3/uL (150.0-450.0) 09/07/24 05:11 MPV 9.3 fL (7.4-11.0) 09/07/24 05:11 Neut % (Auto) 70.8 % (42.0-75.0) 09/07/24 05:11 Lymph % (Auto) 12.5 % (21.0-51.0) L 09/07/24 05:11 [place] % (Auto) 14.1 % (0.0-13.0) H 09/07/24 05:11 Eos % (Auto) 2.3 % (0.9-2.9) 09/07/24 05:11 Baso % (Auto) 0.3 % (0.2-1.0) 09/07/24 05:11 Neut # (Auto) 7.2 x10^3/uL (2.2-4.8) H 09/07/24 05:11 Lymph # (Auto) 1.3 X10^3/uL (1.3-2.9) 09/07/24 05:11 [place] # (Auto) 1.4 x10^3/uL (0.3-0.8) H 09/07/24 05:11 Eos # (Auto) 0.2 x10^3/uL (0.0-0.2) 09/07/24 05:11 Baso # (Auto) 0.0 X10^3/uL (0.0-0.1) 09/07/24 05:11 Absolute Nucleated RBC 0.0 /100WBC 09/07/24 05:11 Sodium 141 mmol/L (136-145) 09/07/24 05:11 Corrected Sodium TNP 09/07/24 05:11 Potassium 3.7 mmol/L (3.5-5.1) 09/07/24 05:11 Chloride 105 mmol/L (98-107) 09/07/24 05:11 Carbon Dioxide 25.6 mmol/L (21-32) 09/07/24 05:11 BUN 10 mg/dL (7-18) 09/07/24 05:11 Creatinine 0.85 mg/dL (0.70-1.30) 09/07/24 05:11 Est GFR (MDRD) Af Amer > 60 (>60) 09/07/24 05:11 Est GFR (MDRD) Non-Af > 60 (>60) 09/07/24 05:11 Glucose 110 mg/dL (65-99) H 09/07/24 05:11 Calcium 8.7 mg/dL (8.5-10.1) 09/07/24 05:11 Corrected Calcium 9.5 mg/dL (8.5-10.1) 09/07/24 05:11 Magnesium 1.8 mg/dL (2.0-2.9) L 09/07/24 05:11 Total Bilirubin 0.40 mg/dL (0.2-1.0) 09/07/24 05:11 AST 17 Units/L (15-37) 09/07/24 05:11 ALT 27 Units/L (12-78) 09/07/24 05:11 Alkaline Phosphatase 99 Units/L (46-116) 09/07/24 05:11 Total Protein 7.2 g/dL (6.4-8.2) 09/07/24 05:11 Albumin 3.0 g/dL (3.4-5.0) L 09/07/24 05:11 Globulin 4.2 g/dL (2.5-4.5) 09/07/24 05:11 Albumin/Globulin Ratio 0.7 Ratio (1.1-2.1) L 09/07/24 05:11 Amylase 107 Units/L (25-115) 09/06/24 22:00 Lipase 49 Units/L (16-77) 09/06/24 22:00 Specimen Type Clean catch urine 09/06/24 23:00 Urine Color Yellow (YELLOW) 09/06/24 23:00 Urine Appearance Clear (CLEAR) 09/06/24 23:00 Urine pH 7.0 (5.0 - 8.0) 09/06/24 23:00 Ur Specific [place] 1.015 (1.000-1.030) 09/06/24 23:00 Urine Protein Negative (NEGATIVE) 09/06/24 23:00 Urine Glucose (UA) Negative (NEGATIVE) 09/06/24 23:00 Urine Ketones Negative (NEGATIVE) 09/06/24 23:00 Urine Blood Negative (NEGATIVE) 09/06/24 23:00 Urine Nitrite Negative (NEGATIVE) 09/06/24 23:00 Urine Bilirubin Negative (NEGATIVE) 09/06/24 23:00 Urine Urobilinogen 1+ (NORMAL) 09/06/24 23:00 Ur Leukocyte Esterase Negative (NEGATIVE) 09/06/24 23:00 Urine RBC 0-2 /HPF (0-3) 09/06/24 23:00 Urine WBC None seen /HPF (0-5) 09/06/24 23:00 Ur Squamous Epith Cells Few /HPF (NEGATIVE) 09/06/24 23:00 Amorphous Sediment 1+ /HPF (NEGATIVE) 09/06/24 23:00 Urine Bacteria Trace /HPF (NEGATIVE) 09/06/24 23:00 Ur Culture Indicated? No/not indicated 09/06/24 23:00 Review of Systems Constitutional: See HPI Eyes: No Symptoms Reported ENT: No Symptoms Reported Respiratory: No Symptoms Reported Cardiovascular: No Symptoms Reported Gastrointestinal: See HPI Genitourinary: No Symptoms Reported Musculoskeletal: No Symptoms Reported Skin: See HPI Neurological: No Symptoms Reported Physical Exam Vital Signs: Vital Signs Temperature 97.5 F Temperature 98.1 F Pulse Rate [Left Brachial] 56 Pulse Rate [Left Brachial] 60 Respiratory Rate 20 Respiratory Rate 20 Respiratory Rate 20 Respiratory Rate 20 Blood Pressure [Left Arm] 114/75 Blood Pressure [Left Arm] 121/72 O2 Sat by Pulse Oximetry 96 O2 Sat by Pulse Oximetry 97 Oriented: Normal, Time, Person and Place Eyes: Normal Ear: Normal Nose: Normal Throat: Normal Respiratory: Clear Throughout Cardiovascular: Normal : Normal Auscultation: Bowel Sounds: Increased Palpation: Other (Mildly distended no significant tenderness) Tenderness: Normal Skin: Wound (Purulent draining area from the umbilicus. This is consistent with the previous diagnosis of enterocutaneous fistula) Musculoskeletal: Normal Psychiatric: Normal Mood Description: Calm Affect: Normal Speech Pattern: Clear and Appropriate Assessment/Plan (1) Small bowel obstruction: Status: Acute Plan: Patient refused nasogastric tube. He already feels better this morning and has passed some flatus. Abdomen not as distended as described before. Will obtain repeat abdominal series to assess. (2) Crohn disease: Qualifiers: Digestive disease complication type: without complication G astrointestinal tract location: small and large intestine Qualified Code(s): K 50.80 - Crohn's disease of both small and large intestine without complications Status: Acute Plan: Patient will need referral for possible medical treatment of Crohn disease. May require surgical treatment as well in the future (3) Enterocutaneous fistula: Status: Acute Plan: See above
--- NOTE | 2024-09-07 10:42 | NOTE.SOAP ---
Soap Note Note for Day of Date of Exam: 09/07/24 Subjective Data Subjective Data: Patient admitted with evidence of possible active Crohn's disease and small bowel obstruction enterocutaneous fistula. Patient is feeling better this morning had refused nasogastric tube. Is passing some flatus. Objective Data Temperature: 97.5 F Pulse Rate: 56 Respiratory Rate: 20 Blood Pressure: 114/75 O2 Sat by Pulse Oximetry: 96 Objective Data: Abdomen less distended. Not tender. Assessment Assessment: Small bowel obstruction in the setting of Crohn disease and enterocutaneous fistula. Will order acute abdominal series to see if he is improving. Plan Plan: Before acute series could be performed, patient signed out AGAINST MEDICAL ADVICE
== END 2024-09-07 10:10 | disposition left against medical advice (07) | DRG 389 ==
LOC: ER 20:59 → MED/SURG 09-07 00:16
PROVIDERS: ADMIT Surgery; ATTEND Surgery
DX: R10.84 Generalized abdominal pain; K56.690 Other partial intestinal obstruction; K50.80 Crohn's disease of both small and large intestine without complications; R73.09 Other abnormal glucose; E87.6 Hypokalemia; K63.2 Fistula of intestine; E83.42 Hypomagnesemia; K59.09 Other constipation; B96.29 Other Escherichia coli [E. coli] as the cause of diseases classified elsewhere; Z53.29 Procedure and treatment not carried out because of patient's decision for other reasons